=== PATIENT | male | born 1975 | race Caucasian/White ===

== ENCOUNTER 2018-03-12 18:03 | Inpatient (IN) | payer BC, OTHER ==
[~2018-03-12] VITALS: Ht 185.4 cm; Wt 102.5 kg
[~2018-03-12 18:03] MED LIST: CELE200C PO; HYDR-3653 PO; PRED5DRO15
[2018-03-12] MEDS ORDERED: SODIUM CHLORIDE 0.9% 1,000ML IVBOLUS ONE (18:30)
[2018-03-12] MEDS ORDERED: ONDANSETRON 2MG/ML, 2ML IVPush ONE (18:30)
[2018-03-12] MEDS ORDERED: MORPHINE SULFATE 4 MG/ML, 1ML IVPush PRN (18:30)
[2018-03-12 18:41] LABS: BASOPHILS # (AUTO) 0.04 x10^3/uL (0-0.1); BASOPHILS % (AUTO) 0 % (0-1); EOSINOPHILS # (AUTO) 0.16 x10^3/uL (0-0.4); EOSINOPHILS % (AUTO) 1 % (1-7); LYMPHOCYTES # (AUTO) 2.48 x10^3/uL (1-3.4); LYMPHOCYTES % (AUTO) 22 % (22-44); MD NO; MEAN CORPUSCULAR HEMOGLOBIN 30.7 pg (27.5-34.5); MEAN CORPUSCULAR VOLUME 87.7 fL (81-97); MEAN PLATELET VOLUME 7.7 fL (7.4-10.4); MONOCYTES % (AUTO) 6 % (2-9); NEUTROPHILS # (AUTO) 8.01 x10^3/uL (1.8-6.8); NEUTROPHILS % (AUTO) 70 % (42-75); PLATELET COUNT 286 x10^3/uL (130-400); RED BLOOD COUNT 5.55 x10^6/uL (4.38-5.82); RED CELL DISTRIBUTION WIDTH 12.5 % (9.4-14.8)
[2018-03-12 18:50] LABS: ALANINE AMINOTRANSFERASE 32 U/L (12-78); ALBUMIN 3.5 g/dL (3.4-5.0); ANION GAP 7 mmol/L (5-15); C-REACTIVE PROTEIN, QUANT 0.94 mg/dL (0.02-0.49); CALCIUM 9.1 mg/dL (8.5-10.1); CHLORIDE 110 mmol/L (98-107); CREATININE 1.14 mg/dL (0.7-1.3)
[2018-03-12 18:52] LABS: ALKALINE PHOSPHATASE 68 U/L (45-117); BILIRUBIN,TOTAL 0.3 mg/dL (0.2-1.0); TOTAL PROTEIN 7.3 g/dL (6.4-8.2)
[2018-03-12] MEDS ORDERED: ONDANSETRON ODT 4 MG ONE (18:52)
[2018-03-12] MEDS ORDERED: MORPHINE SULFATE 4 MG/ML, 1ML ONE (18:53)
[2018-03-12 19:13] LABS: CULTURE INDICATED? NO; MICROSCOPIC NOT IND
[2018-03-12] MEDS ORDERED: OMNIPAQUE 350 MG/ML, 100ML BOTTLE ONE (19:21)
[2018-03-12] MEDS ORDERED: FENTANYL PF 100 MCG/2ML ONE ×3 (20:17→21:19)
[2018-03-12] MEDS ORDERED: CIPROFLOXACIN/PMX 400MG/200ML 200 ML ONE (20:49)
[2018-03-12] MEDS ORDERED: METRONIDAZOLE PMX 500MG/100ML 100 ML ONE (20:49)
[2018-03-12] MEDS ORDERED: ROCURONIUM 10MG/ML,5ML ONE (20:58)
[2018-03-12] MEDS ORDERED: GLYCOPYRROLATE 0.2MG/1ML, 5ML ONE (20:58)
[2018-03-12] MEDS ORDERED: NEOSTIGMINE 1 MG/ML, 10ML ONE (20:58)
[2018-03-12] MEDS ORDERED: DEXAMETHASONE 4 MG/ML, 1ML ONE (20:58)
[2018-03-12] MEDS ORDERED: ONDANSETRON 2MG/ML, 2ML ONE (20:58)
[2018-03-12] MEDS ORDERED: PROPOFOL 10 MG/ML, 20ML ONE (20:58)
[2018-03-12] MEDS ORDERED: SUCCINYLCHOLINE 20 MG/ML, 10ML ONE (20:58)
[2018-03-12] MEDS ORDERED: CEFAZOLIN 1,000 MG ONE (20:58)
[2018-03-12] MEDS ORDERED: FENTANYL PF 100 MCG/2ML IV PRN (21:00)
[2018-03-12] MEDS ORDERED: HYDROmorphone 1 MG/ML, 1ML IV PRN ×2 (21:00→22:30)
[2018-03-12] MEDS ORDERED: OXYcodone 5 MG/5 ML ORAL.SOL UDC PO PRN ×2 (21:00→23:00)
[2018-03-12] MEDS ORDERED: hydrALAzine 20 MG/ML, 1ML IV PRN (21:00)
[2018-03-12] MEDS ORDERED: HALOPERIDOL 5 MG/ML IV PRN (21:00)
[2018-03-12] MEDS ORDERED: LORazepam 2 MG/ML, 1ML IVPush PRN (21:00)
[2018-03-12] MEDS ORDERED: PROCHLORPERAZINE 5 MG/ML, 2ML IV PRN (21:00)
[2018-03-12] MEDS ORDERED: MEPERIDINE/PF 25MG/0.5ML IVPush PRN (21:00)
[2018-03-12] MEDS ORDERED: DIPHENHYDRAMINE 50 MG/ML, 1ML IVPush PRN (21:00)
[2018-03-12] MEDS ORDERED: HYDROmorphone 2 MG/ML, 1ML ONE (21:19)
[2018-03-12] MEDS ORDERED: OXYcodone 5 MG/5 ML ORAL.SOL UDC ONE (21:20)
[2018-03-12] MEDS ORDERED: ACETAMINOPHEN 650 MG SUPP PR PRN (22:30)
[2018-03-12] MEDS ORDERED: DIPHENHYDRAMINE 25 MG CAPSULE PO PRN (22:30)
[2018-03-12] MEDS ORDERED: DIPHENHYDRAMINE 50 MG/ML, 1ML IV PRN (22:30)
[2018-03-12] MEDS ORDERED: ACETAMINOPHEN 325 MG TABLET PO PRN (22:30)
[2018-03-12] MEDS ORDERED: LORazepam 1MG TABLET PO PRN (23:00)
[2018-03-12] MEDS ORDERED: LORazepam 2 MG/ML, 1ML IV PRN (23:00)
[2018-03-12] MEDS: CIPROFLOXACIN/PMX 400MG/200ML 200 ML IVPB SCH (23:00)
[2018-03-13] MEDS: METRONIDAZOLE PMX 500MG/100ML 100 ML IVPB SCH ×2 (00:07→07:54)
[2018-03-13 02:23] VITALS: BP 118/74
[2018-03-13 07:23] VITALS: BP 113/67
[2018-03-13] MEDS: CIPROFLOXACIN/PMX 400MG/200ML 200 ML IVPB SCH (10:54)
[2018-03-13] MEDS ORDERED: OXYC-302 PO (11:10)
[2018-03-13] MEDS ORDERED: CIPR500T87 PO (11:11)
[2018-03-13] MEDS ORDERED: METR500T PO (11:11)
[2018-03-13 13:50] VITALS: BP 128/70
== END 2018-03-13 18:15 | disposition home or self-care (01) | DRG 346 ==
LOC: ED 19:44 → EDIP 20:07 → 4NOR 21:57
PROVIDERS: ADMIT Surgery; ATTEND Surgery
PROC: 0D9P0ZZ Drainage of Rectum, Open Approach (ICD-10-PCS; principal; 2018-03-12 20:15)
DX: K61.1 Rectal abscess (principal)
CPT/HCPCS: 36415; 87106; 99285; J3490; 74177; 80053; 81003; 83605; 85025; 86140; 87070; 87075; 87077; 87205; 96361; 96374; 96375; G0378; J0690; J0744; J1100; J2405; J2704; J2710; J3010; Q9967; J0330; J7030